=== PATIENT | female | born 1960 | race Asian ===

== ENCOUNTER 2016-08-04 09:38 | Outpatient (CLI) | payer MEDICARE, MEDICAID | END 2016-08-04 23:59 | disposition home or self-care (01) | DX: E11.9 Type 2 diabetes mellitus without complications (principal) ==

== ENCOUNTER 2017-01-15 21:42 | Outpatient (CLI) | payer MEDICARE, MEDICAID | END 2017-01-15 21:43 | disposition critical access hospital (66) | LOC: EMS 21:42 | PROVIDERS: ATTEND Surgery | DX: R09.89 Other specified symptoms and signs involving the circulatory and respiratory systems (principal) | CPT/HCPCS: A0425; A0427 ==

== ENCOUNTER 2017-01-15 21:49 | Emergency (ER) | payer MEDICARE, MEDICAID ==
[2017-01-15] MEDS ORDERED: ALBUTEROL NEB 2.5 MG/3 ML INH STA ×2 (22:22→23:50)
[2017-01-15] MEDS ORDERED: SODIUM CHLORIDE 0.9% 250 ML IV ONE (22:22)
--- NOTE | 2017-01-15 22:26 | ED Physician Documentation ---
PD HPI SYNCOPE - Stated complaint Stated Complaint: SYMP THOMAS - Chief complaint Chief Complaint: Cardiac - History obtained from History obtained from: Patient, EMS - History of Present Illness Witnessed: Unwitnessed (ginny) PD PAST MEDICAL HISTORY - Past Medical History Cardiovascular: Congestive heart failure, Hypertension, High cholesterol, Coronary artery disease Respiratory: Pneumonia Neuro: CVA Endocrine/Autoimmune: Type 2 diabetes GI: GERD : Renal insuffiency HEENT: None Psych: Depression Musculoskeletal: Fibromyalgia, Rheumatoid arthritis Derm: None - Past Surgical History Past Surgical History: Yes General: Cholecystectomy Ortho: Carpal Tunnel surgery /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 Cardiovascular: Coronary stent - Present Medications Home Medications: Ambulatory Orders Medication Instructions Recorded Confirmed Atorvastatin [Lipitor] 80 mg PO QPM 03/09/15 01/15/17 Carvedilol 6.25 mg PO BID 03/09/15 01/15/17 Clopidogrel [Plavix] 75 mg PO DAILY 07/30/15 01/15/17 Furosemide 40 mg PO QPM 09/26/15 01/15/17 Gabapentin 1 tab PO TID 01/15/17 01/15/17 Glipizide [Glipizide Xl] 1 tab PO DAILY 01/15/17 01/15/17 Lisinopril 1 tab PO DAILY 01/15/17 01/15/17 Sevelamer [Renagel] 1 tab PO TID 01/15/17 01/15/17 Spironolactone [Aldactone] 200 mg PO DAILY 01/15/17 01/15/17 - Allergies Allergies/Adverse Reactions: Allergies Allergy/AdvReac Type Severity Reaction Status Date / Time No Known Drug Allergies Allergy Verified 01/15/17 21:54 - Social History Does the pt smoke?: No Smoking Status: Never smoker Does the pt drink ETOH?: No Does the pt have substance abuse?: No - Immunizations Immunizations are current?: Yes - POLST Patient has POLST: No Results - Vitals Vitals: Vital Signs - 24 hr 01/15/17 01/15/17 01/15/17 21:49 22:20 22:23 Temperature 37.3 C Heart Rate 52 L 52 L Respiratory 17 18 Rate Blood Pressure 110/58 L 108/52 L O2 Saturation 99 98 01/15/17 01/16/17 23:25 00:01 Temperature Heart Rate 59 L 62 Respiratory 18 18 Rate Blood Pressure 98/44 L 86/34 L O2 Saturation 99 98 Oxygen O2 Source [Without Activity] Room air O2 Source [With Activity] Room air O2 Source Room air - Labs Labs: Laboratory Tests 01/15/17 01/15/17 01/15/17 22:55 22:55 22:55 WBC 10.2 RBC 3.68 L Hgb 11.5 L Hct 34.8 L MCV 94.5 MCH 31.4 H MCHC 33.2 RDW 16.9 H Plt Count 182 MPV 7.5 L Neut # 7.9 H Lymph # 1.2 L [place] # 0.7 Eos # 0.3 Baso # 0.1 Absolute Nucleated RBC 0.00 Nucleated RBCs 0.0 Sodium 132 L Potassium 8.3 H* Chloride 95 L Carbon Dioxide 24 Anion Gap 13.0 Glucose 199 H Calcium 9.6 Ammonia 22.7 Troponin I 01/15/17 23:04 WBC RBC Hgb Hct MCV MCH MCHC RDW Plt Count MPV Neut # Lymph # [place] # Eos # Baso # Absolute Nucleated RBC Nucleated RBCs Sodium Potassium Chloride Carbon Dioxide Anion Gap Glucose Calcium Ammonia Troponin I < 0.04
[2017-01-15] MEDS ORDERED: ALBUTEROL NEB 2.5 MG/3 ML INH ONE (22:32)
[2017-01-15 23:10] LABS: BASOPHILS # (AUTO) 0.1 10^3/uL (0.0-0.1); BASOPHILS % (AUTO) 1.1 %; EOSINOPHILS # (AUTO) 0.3 10^3/uL (0.0-0.7); EOSINOPHILS % (AUTO) 2.6 %; HCT - HEMATOCRIT 34.8 % (37.0-47.0); HGB - HEMOGLOBIN 11.5 g/dL (12.0-16.0); LYMPHOCYTES # (AUTO) 1.2 10^3/uL (1.5-3.5); LYMPHOCYTES % (AUTO) 12.2 %; MEAN CORPUSCULAR HEMOGLOBIN 31.4 pg (27.0-31.0); MEAN CORPUSCULAR HGB CONC 33.2 g/dL (32.0-36.0); MEAN CORPUSCULAR VOLUME 94.5 fL (81.0-99.0); MEAN PLATELET VOLUME 7.5 fL (7.9-10.8); MONOCYTES # (AUTO) 0.7 10^3/uL (0.0-1.0); MONOCYTES % (AUTO) 7.1 %; NEUTROPHILS # (AUTO) 7.9 10^3/uL (1.5-6.6); RED BLOOD COUNT 3.68 10^6/uL (4.20-5.40); RED CELL DISTRIBUTION WIDTH 16.9 % (12.0-15.0); UNCORRECTED WHITE BLOOD COUNT 10.2 x10^3/uL; WHITE BLOOD COUNT 10.2 x10^3/uL (4.8-10.8)
--- NOTE | 2017-01-15 23:14 | XRAY Preliminary Report ---
Exam: XR Chest 1 View IMPRESSION: 1. Cardiomegaly and pulmonary vascular congestion with possible pulmonary edema. 2. Small right pleural effusion. [facility] SITE ID: [id number]
--- NOTE | 2017-01-15 23:17 | XRAY Report ---
EXAM: CHEST RADIOGRAPHY EXAM DATE: 01/15/2017 10:52 PM. CLINICAL HISTORY: Weakness, some cough. COMPARISON: 02/11/2016. TECHNIQUE: 1 view. FINDINGS: Lungs/Pleura: Pulmonary vascular congestion. Possible pulmonary edema. Small right pleural effusion. No pneumothorax. Mediastinum: [id number] cardiomegaly. Other: None. IMPRESSION: 1. Cardiomegaly and pulmonary vascular congestion with possible pulmonary edema. 2. Small right pleural effusion. [facility] Referring Provider Line: [phone] SITE ID: [id number]
[2017-01-15 23:39] LABS: CALCIUM 9.6 mg/dL (8.5-10.3)
[2017-01-15] MEDS ORDERED: INSULIN REGULAR HUMAN 100 UNIT/1 ML 10 ML MDV IVP STA (23:39)
[2017-01-15] MEDS ORDERED: SODIUM BICARBONATE ABBOJECT 50 MEQ/50 ML SYRINGE IVP STA (23:39)
[2017-01-15] MEDS ORDERED: DEXTROSE 50% ABBOJECT 25 GM/50 ML SYRINGE IVP STA (23:39)
[2017-01-15] MEDS ORDERED: SODIUM POLYSTYRENE SULFONATE 15 GM/60 ML BOTTLE PO STA ×2 (23:40→23:54)
[2017-01-15] MEDS ORDERED: CALCIUM GLUCONATE 1000 MG/10 ML VIAL IVP STA (23:40)
[2017-01-15] MEDS ORDERED: SODIUM POLYSTYRENE SULFONATE 15 GM/60 ML BOTTLE ONE (23:49)
[2017-01-15] MEDS ORDERED: CALCIUM GLUCONATE 1000 MG/10 ML VIAL ONE (23:49)
[2017-01-15] MEDS ORDERED: INSULIN REGULAR HUMAN 100 UNIT/1 ML 10 ML MDV ONE (23:49)
[2017-01-15] MEDS ORDERED: DEXTROSE 50% ABBOJECT 25 GM/50 ML SYRINGE ONE (23:49)
[2017-01-15] MEDS ORDERED: SODIUM BICARBONATE ABBOJECT 50 MEQ/50 ML SYRINGE ONE (23:50)
--- NOTE | 2017-01-16 00:07 | ED Physician Documentation ---
PD HPI ALTERED MENTAL STATUS - Stated complaint Stated Complaint: SYMP THOMAS - Chief complaint Chief Complaint: Cardiac - History obtained from History obtained from: Patient, EMS - History of Present Illness Timing - onset: Today Timing - duration: Hours Timing - details: Gradual onset, Still present Quality / character: Less responsive, Other (general weakness) Associated symptoms: Dyspnea, Cough (for 2-3 days), General weakness. No: Fever , Headache, NVD, Urinary sx, Focal weakness, Seizure activity, Syncope (feeling very weak and lightheaded today) Contributing factors: Diabetic, Other (dialysis patient, has not missed any sessions. Has had mild cough/congestion for few days. No change in meds.). 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 denies: Abdominal Pain, Vomiting, Diarrhea, Bloody / black stool Skin: denies: Rash Musculoskeletal: denies: Neck pain, Back pain Neurologic: reports: Generalized weakness. denies: Focal weakness, Numbness, Difficulty speaking, Headache, Head injury Psychiatric: denies: Depressed Endocrine: denies: Weight loss Immunocompromised: denies: Immunocompromised PD PAST MEDICAL HISTORY - Past Medical History Cardiovascular: Congestive heart failure, Hypertension, High cholesterol, Coronary artery disease Respiratory: Pneumonia Neuro: CVA Endocrine/Autoimmune: Type 2 diabetes GI: GERD : Renal insuffiency HEENT: None Psych: Depression Musculoskeletal: Fibromyalgia, Rheumatoid arthritis Derm: None - Past Surgical History Past Surgical History: Yes General: Cholecystectomy 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: 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 Cardiovascular: Coronary stent - Present Medications Home Medications: Ambulatory Orders Medication Instructions Recorded Confirmed Atorvastatin [Lipitor] 80 mg PO QPM 03/09/15 01/15/17 Carvedilol 6.25 mg PO BID 03/09/15 01/15/17 Clopidogrel [Plavix] 75 mg PO DAILY 07/30/15 01/15/17 Furosemide 40 mg PO QPM 09/26/15 01/15/17 Gabapentin 1 tab PO TID 01/15/17 01/15/17 Glipizide [Glipizide Xl] 1 tab PO DAILY 01/15/17 01/15/17 Lisinopril 1 tab PO DAILY 01/15/17 01/15/17 Sevelamer [Renagel] 1 tab PO TID 01/15/17 01/15/17 Spironolactone [Aldactone] 200 mg PO DAILY 01/15/17 01/15/17 - Allergies Allergies/Adverse Reactions: Allergies Allergy/AdvReac Type Severity Reaction Status Date / Time No Known Drug Allergies Allergy Verified 01/15/17 21:54 - Social History Does the pt smoke?: No Smoking Status: Never smoker Does the pt drink ETOH?: No Does the pt have substance abuse?: No - Immunizations Immunizations are current?: Yes - POLST Patient has POLST: No PD ED PE NORMAL - Vitals Vital signs reviewed: Yes - General General: No acute distress, Well developed/nourished, Other (somewhat slow to answer questions. No focal weakness. General weakness noted. ) - HEENT HEENT: Atraumatic, Ears normal, Pharynx benign - Neck Neck: Supple, no meningeal sign, No adenopathy, No JVD - Cardiac Cardiac: No murmur. No: RRR (bradycardia) - Respiratory Respiratory: Clear bilaterally - Abdomen Abdomen: Soft, Non tender, Non distended, No organomegaly - Female Female : Deferred - Rectal Rectal: Deferred - Back Back: No CVA TTP - Derm Derm: Normal color, Warm and dry - Extremities Extremities: No deformity, Normal ROM s pain, No edema, No calf tenderness / cord, Other (fistula left forearm with good thrill. 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 ) Results - Vitals Vitals: Vital Signs - 24 hr 01/15/17 01/15/17 01/15/17 21:49 22:20 22:23 Temperature 37.3 C Heart Rate 52 L 52 L Respiratory 17 18 Rate Blood Pressure 110/58 L 108/52 L O2 Saturation 99 98 01/15/17 01/16/17 01/16/17 23:25 00:01 00:37 Temperature Heart Rate 59 L 62 46 L Respiratory 18 18 18 Rate Blood Pressure 98/44 L 86/34 L 119/49 L O2 Saturation 99 98 99 Oxygen O2 Source [] Room air O2 Source [] Room air O2 Source Room air - EKG (time done) 21:59 Rate: Rate (enter#) (49) Rhythm: Other (junctional rhythm) [place]: Normal Intervals: Normal ND, Wide QRS QRS: Normal - Labs Labs: Laboratory Tests 01/15/17 01/15/17 01/15/17 22:55 22:55 22:55 WBC 10.2 RBC 3.68 L Hgb 11.5 L Hct 34.8 L MCV 94.5 MCH 31.4 H MCHC 33.2 RDW 16.9 H Plt Count 182 MPV 7.5 L Neut # 7.9 H Lymph # 1.2 L [place] # 0.7 Eos # 0.3 Baso # 0.1 Absolute Nucleated RBC 0.00 Nucleated RBCs 0.0 Sodium 132 L Potassium 8.3 H* Chloride 95 L Carbon Dioxide 24 Anion Gap 13.0 BUN 88 H* Creatinine 8.1 H* Estimated GFR (MDRD) 5 L Glucose 199 H Calcium 9.6 Phosphorus 7.4 H Magnesium 3.0 H Total Bilirubin 0.9 AST 38 ALT 41 Alkaline Phosphatase 293 H Ammonia 22.7 Troponin I Total Protein 8.0 Albumin 3.3 Globulin 4.7 H Albumin/Globulin Ratio 0.7 L Lipase 281 H 01/15/17 23:04 WBC RBC Hgb Hct MCV MCH MCHC RDW Plt Count MPV Neut # Lymph # [place] # Eos # Baso # Absolute Nucleated RBC Nucleated RBCs Sodium Potassium Chloride Carbon Dioxide Anion Gap BUN Creatinine Estimated GFR (MDRD) Glucose Calcium Phosphorus Magnesium Total Bilirubin AST ALT Alkaline Phosphatase Ammonia Troponin I < 0.04 Total Protein Albumin Globulin Albumin/Globulin Ratio Lipase - Rads (name of study) chest Radiology: Prelim report reviewed, EMP read contemporaneously (small right effusion. No infiltrates. ) PD MEDICAL DECISION MAKING - ED course Complexity details: reviewed results (hyperkalemia. No obvious acute infection. Consider URI/viral. Given meds for hyperkalemia and did decrease from 8.3 to 6.9. Will need emergent dialysis. ), considered differential, d/w patient, other (Tried several hospitals: [facility], transfer center, then was able to get accepting at [facility] in [place]. ) - Critical Care Time(min): 50 Time Includes: Direct patient care, Reassess patient, Document care, Coordinate care, Medical consult Data interpretation: Labs, CXR, See progress note Departure - Departure Disposition: 02 Transfer Acute Care Hosp Clinical Impression: General weakness, Hyperkalemia Renal failure (ARF), acute on chronic Qualifiers: Acute renal failure type: unspecified Chronic kidney disease stage: on chronic dialysis Qualified Code(s): N17.9 - Acute kidney failure, unspecified; N18.9 - Chronic kidney disease, unspecified; Z99.2 - Dependence on renal dialysis Condition: Critical Record reviewed to determine appropriate education?: Yes
[2017-01-16 00:10] LABS: ALBUMIN/GLOBULIN RATIO 0.7 (1.0-2.2); BILIRUBIN,TOTAL 0.9 mg/dL (0.2-1.0); PHOSPHORUS 7.4 mg/dL (2.5-4.6); POTASSIUM 8.3 mmol/L (3.5-5.0)
[2017-01-16 00:11] LABS: CREATININE 8.1 mg/dL (0.4-1.0)
[2017-01-16] MEDS ORDERED: SODIUM POLYSTYRENE SULFONATE 15 GM/60 ML BOTTLE ONE (00:38)
[2017-01-16] MEDS ORDERED: ALBUTEROL NEB 2.5 MG/3 ML INH ONE (00:38)
[2017-01-16] MEDS ORDERED: SODIUM BICARBONATE ABBOJECT 50 MEQ/50 ML SYRINGE IVP STA (00:46)
[2017-01-16] MEDS ORDERED: INSULIN REGULAR HUMAN 100 UNIT/1 ML 10 ML MDV IVP STA (01:03)
[2017-01-16] MEDS ORDERED: INSULIN REGULAR HUMAN 100 UNIT/1 ML 10 ML MDV ONE (01:10)
[2017-01-16] MEDS ORDERED: SODIUM BICARBONATE ABBOJECT 50 MEQ/50 ML SYRINGE ONE (01:10)
[2017-01-16] MEDS ORDERED: METOCLOPRAMIDE 10 MG/2 ML VIAL IVP STA (02:04)
[2017-01-16 02:06] LABS: CALCIUM 9.7 mg/dL (8.5-10.3)
[2017-01-16 02:07] LABS: CREATININE 8.4 mg/dL (0.4-1.0); POTASSIUM 6.9 mmol/L (3.5-5.0)
[2017-01-16 03:54] VITALS: BP 103/71
== END 2017-01-16 02:10 | disposition short-term general hospital (02) ==
LOC: EDUNIT# → EDBD → ED 21:49
DX: R53.1 Weakness (principal); E87.5 Hyperkalemia; N17.9 Acute kidney failure, unspecified; R94.31 Abnormal electrocardiogram [ECG] [EKG]; I13.0 Hypertensive heart and chronic kidney disease with heart failure and stage 1 through stage 4 chronic kidney disease, or unspecified chronic kidney disease; E11.22 Type 2 diabetes mellitus with diabetic chronic kidney disease; N18.9 Chronic kidney disease, unspecified; I50.9 Heart failure, unspecified; E78.00 Pure hypercholesterolemia, unspecified; M06.9 Rheumatoid arthritis, unspecified; I25.10 Atherosclerotic heart disease of native coronary artery without angina pectoris; Z95.5 Presence of coronary angioplasty implant and graft; Z99.2 Dependence on renal dialysis
CPT/HCPCS: 36415; 71010; 80048; 80053; 82140; 83690; 83735; 84100; 84484; 85025; 93005; 96374; 96375; 96376; 99284; 99291; A9270; J7613; 99285

== ENCOUNTER 2017-01-16 02:12 | Outpatient (CLI) | payer MEDICARE, MEDICAID | END 2017-01-16 02:13 | disposition short-term general hospital (02) | LOC: EMS 02:12 | PROVIDERS: ATTEND Surgery | DX: R09.89 Other specified symptoms and signs involving the circulatory and respiratory systems (principal) | CPT/HCPCS: A0425; A0427 ==

== ENCOUNTER 2017-04-08 12:11 | Outpatient (CLI) | payer MEDICARE, MEDICAID | END 2017-04-08 12:12 | disposition E | LOC: EMS 12:11 | PROVIDERS: ATTEND Surgery ==